=== PATIENT | female | born 1975 ===

== ENCOUNTER 2017-02-19 21:42 | Emergency (ER) | payer SELFPAY ==
[2017-02-19 21:50] VITALS: BP 144/105; PULSE 77; RESP 16; TEMP 98.2; O2SAT 100
--- NOTE | 2017-02-19 22:44 | ED PDOC ---
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 PT states she touched her face and it began to swell. PT states she also has burning and redness to her hand. PT denies similar in the past. Pt reports decreased swelling after benadryl at home. Past Medical History Reviewed: Historical Data, Nursing Documentation, Vital Signs Vital Signs: Last Vital Signs Temp 98.2 F 02/19/17 21:45 Pulse 77 02/19/17 21:45 Resp 16 02/19/17 21:45 BP 144/105 H 02/19/17 21:45 Pulse Ox 100 02/19/17 21:45 - Medical History PMH: No Chronic Diseases - Surgical History Surgical History: No Surg Hx - Family History Family History: States: No Known Family Hx - Living Arrangements Living Arrangements: With Family - Social History Current smoker - smoking cessation education provided: No Alcohol: None Drugs: Denies - Home Medications Home Medications: Ambulatory Orders Medication Instructions Recorded Famotidine [Pepcid] 20 mg PO DAILY #5 tab 02/19/17 predniSONE [predniSONE Tab] 20 mg PO DAILY #12 tab 02/19/17 - Allergies Allergies/Adverse Reactions: Allergies Allergy/AdvReac Type Severity Reaction Status Date / Time No Known Allergies Allergy Verified 02/19/17 21:45 Review of Systems ROS Statement: Except As Marked, All Systems Reviewed And Found Negative Skin: Positive for: Rash Physical Exam - Reviewed Nursing Documentation Reviewed: Yes Vital Signs Reviewed: Yes - Physical Exam Appears: Positive for: Well, Non-toxic, No Acute Distress Head Exam: Positive for: ATRAUMATIC, NORMAL INSPECTION, NORMOCEPHALIC Skin: Positive for: Warm, Rash (Erythematous on the hands and around lips ). Negative for: Normal Color Eye Exam: Positive for: Normal appearance ENT: Positive for: Normal ENT Inspection. Negative for: Tonsillar Swelling Neck: Positive for: Normal, Painless ROM Cardiovascular/Chest: Positive for: Regular Rate, Rhythm Respiratory: Positive for: Normal Breath Sounds. Negative for: Accessory Muscle Use, Respiratory Distress Back: Positive for: Normal Inspection Extremity: Positive for: Normal ROM Neurologic/Psych: Positive for: Alert, Oriented - ECG O2 Sat by Pulse Oximetry: 100 Pulse Ox Interpretation: Normal - Progress ED Course And Treament: Pt states on re-evaluation she has not burning, tingling or swelling around the face or on the hands. Re-evaluation Time: 22:45 Disposition - Clinical Impression Clinical Impression: Allergic reaction - Patient ED Disposition Is Patient to be Admitted: No Counseled Patient/Family Regarding: Diagnosis, Need For Followup, Rx Given - Disposition Disposition: Routine/Home Disposition Time: 22:46 Condition: GOOD Prescriptions: Famotidine [Pepcid] 20 mg PO DAILY #5 tab predniSONE [predniSONE Tab] 20 mg PO DAILY #12 tab Instructions: Food Allergy (ED)
== END 2017-02-19 23:00 | disposition home or self-care (01) ==
LOC: H.ER 21:42
DX: T78.40XA Allergy, unspecified, initial encounter (principal)
CPT/HCPCS: 96372; 99282; J2930